=== PATIENT | female | born 1955 | race Hispanic/Latino ===

== ENCOUNTER → 2020-06-22 | Outpatient (CLI) | payer MEDICARE | END | disposition home or self-care (01) | LOC: CANPRESDC → DAH 10:00 → EDSTATUS 07-01 07:30 | PROVIDERS: ATTEND Internal Medicine Gastroenterology | DX: Z01.812 Encounter for preprocedural laboratory examination (principal); Z20.828 Contact with and (suspected) exposure to other viral communicable diseases; R12 Heartburn; Z86.010 Personal history of colon polyps; Z80.0 Family history of malignant neoplasm of digestive organs | CPT/HCPCS: C9803; U0003 ==

== ENCOUNTER → 2021-02-24 | Outpatient (CLI) | payer MEDICARE | END | disposition home or self-care (01) | LOC: RAH 12:56 | PROVIDERS: ATTEND Otolaryngology Plastic Surgery within the Head & Neck | DX: H70.92 Unspecified mastoiditis, left ear (principal) | CPT/HCPCS: 70480 ==

== ENCOUNTER 2021-07-27 06:47 | Day surgery (SDC) | payer MEDICARE ==
[~2021-07-27] VITALS: Ht 154.9 cm; Wt 79.4 kg
[~2021-07-27 06:47] MED LIST: 0.9%NACL 1000ML 1,000 ML IV ONE; ASPI-1197 PO; GABA-529 PO; LOSA50TA64 PO; METF-526 PO; ROSU20TA23 PO; VENL25 PO
[2021-07-27 07:20] VITALS: BP 158/76
[2021-07-27 10:06] VITALS: BP 113/58
[2021-07-27 10:11] VITALS: BP 116/57
[2021-07-27 10:16] VITALS: BP 121/65
[2021-07-27 10:21] VITALS: BP 121/73
[2021-07-27 10:26] VITALS: BP 142/68
== END 2021-07-27 10:40 | disposition home or self-care (01) ==
LOC: ENDO 06:47 → DAH 06:47 → ENDO 10:40
PROVIDERS: ATTEND Internal Medicine Gastroenterology
DX: R14.0 Abdominal distension (gaseous) (principal); K57.30 Diverticulosis of large intestine without perforation or abscess without bleeding; K29.50 Unspecified chronic gastritis without bleeding; K21.9 Gastro-esophageal reflux disease without esophagitis; K25.9 Gastric ulcer, unspecified as acute or chronic, without hemorrhage or perforation; E11.9 Type 2 diabetes mellitus without complications; I10 Essential (primary) hypertension; Z86.010 Personal history of colon polyps; Z80.0 Family history of malignant neoplasm of digestive organs; Z90.710 Acquired absence of both cervix and uterus; Z90.13 Acquired absence of bilateral breasts and nipples; Z79.84 Long term (current) use of oral hypoglycemic drugs; Z79.899 Other long term (current) drug therapy; Z20.822 Contact with and (suspected) exposure to COVID-19
CPT/HCPCS: 43239; 45378; 82948 ×2; 87635; 88305; 88342; 93005; A4215 ×2; A4221; A4222; A4223; A4606; A4620; A4657; A4663; C9803; J7030

== ENCOUNTER 2022-02-21 11:21 | Emergency (ER) | payer MEDICARE ==
[~2022-02-21] VITALS: Ht 157.5 cm; Wt 79.4 kg
[~2022-02-21 11:21] MED LIST changes: -0.9%NACL 1000ML 1,000 ML IV ONE
[2022-02-21] MEDS ORDERED: IBUP-2070 PO (12:46)
[2022-02-21] MEDS ORDERED: IBUPROFEN 600 MG TABLET PO SCH (13:00)
[2022-02-21 13:10] VITALS: BP 142/70
== END 2022-02-21 13:16 | disposition home or self-care (01) ==
LOC: EDH 11:21
DX: M25.512 Pain in left shoulder (principal); E11.9 Type 2 diabetes mellitus without complications; I10 Essential (primary) hypertension; I21.9 Acute myocardial infarction, unspecified; Z79.1 Long term (current) use of non-steroidal anti-inflammatories (NSAID); Z79.82 Long term (current) use of aspirin; Z79.84 Long term (current) use of oral hypoglycemic drugs; Z79.899 Other long term (current) drug therapy; Z90.13 Acquired absence of bilateral breasts and nipples
CPT/HCPCS: 73030; 93005

== ENCOUNTER 2024-08-13 06:07 | Day surgery (SDC) | payer MEDICARE ==
[2024-08-13] VITALS (11 sets, daily range): BP systolic 124–143; BP diastolic 56–77; PULSE 66–90; RESP 14–18; TEMP 97–98.1
[~2024-08-13] VITALS: Ht 154.9 cm; Wt 79.4 kg
[~2024-08-13 06:07] MED LIST changes: -ASPI-1197 PO; +DULA1.5P SQ; -GABA-529 PO; +GABA300C PO; +LOSA25TA41 PO; -LOSA50TA64 PO; -METF-526 PO; -ROSU20TA23 PO
[2024-08-13] MEDS: 0.9%NACL 1000ML 1,000 ML IV ONE (06:33)
[2024-08-13] MEDS ORDERED: LIDOCAINE HCL 1% 20 ML VIAL ONE (07:55)
[2024-08-13] MEDS ORDERED: proPOFol 10 MG/ML 20ML VIAL IV ONE ×2 (07:55)
[2024-08-13] MEDS ORDERED: SIMETHICONE 40 MG/0.6 ML ML ONE (08:14)
== END 2024-08-13 09:18 | disposition home or self-care (01) ==
LOC: DAH 06:07 → ENDO 06:07
PROVIDERS: ATTEND Internal Medicine Gastroenterology
DX: Z09 Encounter for follow-up examination after completed treatment for conditions other than malignant neoplasm (principal); K57.30 Diverticulosis of large intestine without perforation or abscess without bleeding; K29.70 Gastritis, unspecified, without bleeding; K31.7 Polyp of stomach and duodenum; R12 Heartburn; I10 Essential (primary) hypertension; E11.9 Type 2 diabetes mellitus without complications; K21.9 Gastro-esophageal reflux disease without esophagitis; Z86.0100 Personal history of colon polyps, unspecified; Z80.0 Family history of malignant neoplasm of digestive organs; Z85.3 Personal history of malignant neoplasm of breast; Z90.13 Acquired absence of bilateral breasts and nipples; Z90.710 Acquired absence of both cervix and uterus; Z79.84 Long term (current) use of oral hypoglycemic drugs; Z79.899 Other long term (current) drug therapy
CPT/HCPCS: 43251; 82948 ×2; 43239; 45378; J7030 ×2; J2704 ×2; A4620; A4215; A4223; A7002; A4222; A4221; A4663; A4606; J3490